=== PATIENT | male | born 1980 | race Caucasian/White ===

== ENCOUNTER 2020-11-20 19:41 | Emergency (ER) | payer OTHER ==
[2020-11-20 19:48] VITALS: BP 126/71; PULSE 109; TEMP 100.1; BMI 31.6
[2020-11-20] MEDS ORDERED: DEXAMETHASONE LIQUID 0.5 MG/5 ML PO ONE (21:34)
[2020-11-20] MEDS ORDERED: DEXAMETHASONE SOD PHOSPHATE 10 MG/1 ML VIAL ONE (21:40)
== END 2020-11-20 23:10 | disposition home or self-care (01) ==
LOC: JER 19:41 → JERFT 19:41 → JER 23:10
DX: U07.1 COVID-19 (principal); J02.0 Streptococcal pharyngitis
CPT/HCPCS: 87880; 99283-25; C9803; U0003; U0005